=== PATIENT | male | born 1980 | race Two or more races ===

== ENCOUNTER 2020-11-14 14:13 | Emergency (ER) | payer OTHER ==
[~2020-11-14] VITALS: Ht 180.3 cm; Wt 88.0 kg
[2020-11-14 14:30] VITALS: BP 152/89
--- NOTE | 2020-11-14 14:52 | NUR ---
ED Nurse Note: ERPA at bedside.
--- NOTE | 2020-11-14 14:59 | NUR ---
ED Nurse Note: pt was taken to x-ray
--- NOTE | 2020-11-14 15:16 | Emergency Room Report ---
History of Present Illness General Chief Complaint: Puncture Wound Source: Patient Present Illness HPI 40-year-old male with history of hearing impairment here due to a work injury that occurred 2 days ago. Patient asks for communication via writing on paper. Patient reports that 2 days ago he accidentally stepped on a nail at work. Denies any bleeding at this time. Complains of 3 out of 10. Site of puncture with radiation to medial side of leg all the way to the knee. Has full range of motion of knee and chills pain with flexion of the knee. Denies any fall or injury to the knee. Denies any tingling or numbness. Denies fever and chills. Patient is requesting a tetanus shot. Has not taken medication for symptom relief. Patient is able to bear weight on the affected side. Communication with the patient was done via writing, my nurse Selena was present during our conversation. Patient agreed with the assessment and plan. 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 Patient History Past Medical History: see triage record Past Surgical History: none Pertinent Family History: none Immunizations: other - Tdap today Reviewed Nursing Documentation: PMH: Agreed; PSxH: Agreed Nursing Documentation-PMH Past Medical History: No History, Except For Review of Systems All Other Systems: negative except mentioned in HPI Physical Exam Vital Signs Date Time Temp Pulse Resp B/P (MAP) Pulse Ox O2 Delivery O2 Flow Rate FiO2 11/14/20 14:23 98.1 64 18 152/89 (110) 95 Room Air Sp02 EP Interpretation: reviewed, normal General Appearance: no apparent distress, alert, GCS 15, non-toxic Head: normocephalic, atraumatic Eyes: bilateral eye normal inspection, bilateral eye PERRL ENT: hearing grossly normal, no angioedema, normal voice Neck: full range of motion, supple/symm/no masses Respiratory: no retraction, speaking full sentences Cardiovascular #1: normal inspection Cardiovascular #2: 2+ dorsalis pedis (R), 2+ dorsalis pedis (L) Gastrointestinal: soft Rectal: deferred Musculoskeletal: back normal, no calf tenderness, no lower extremity edema, non-tender Neurologic: alert, motor strength/tone normal, oriented x3, sensory intact, responsive, speech normal Psychiatric: judgement/insight normal, memory normal, mood/affect normal, no suicidal/homicidal ideation Skin: other - puncture wound right foot Lymphatic: no adenopathy Medical Decision Making PA Attestation All diagnoses and treatment plans were reviewed and discussed with my supervising physician Dr. Lizama Diagnostic Impression: Primary Impression: Puncture wound ER Course 40-year-old male with history of hearing impairment here due to a work injury that occurred 2 days ago. Patient asks for communication via writing on paper. Patient reports that 2 days ago he accidentally stepped on a nail at work. Denies any bleeding at this time. Complains of 3 out of 10. Site of puncture with radiation to medial side of leg all the way to the knee. Has full range of motion of knee and chills pain with flexion of the knee. Denies any fall or injury to the knee. Denies any tingling or numbness. Denies fever and chills. Patient is requesting a tetanus shot. Has not taken medication for symptom reli ef. Patient is able to bear weight on the affected side. Communication with the patient was done via writing, my nurse Selena was present during our conversation. Patient agreed with the assessment and plan. Ddx considered but are not limited to : Cellulitis, puncture wound, laceration,, superficial infection, abscess Vital signs: are WNL, pt. is afebrile H&PE are most consistent with: Puncture wound ORDERS: X-ray foot, Keflex, ibuprofen ED INTERVENTIONS: Tdap DISCHARGE: At this time pt. is stable for d/c to home. Will provide printed patient care instructions, and any necessary prescriptions. Care plan and follow up instructions have been discussed with the patient prior to discharge. Patient take medication as directed, follow primary care provider resource recovery specialist in case there is a tendon injury or radiation of pain to the medial side of foot. Patient agrees with this assessment and plan. If worsening symptoms return to the emergency room. Other X-Ray Diagnostic Results Other X-Ray Diagnostic Results : X-Ray ordered: Right foot # of Views/Limited Vs Complete: 3 View Indication: Pain EP Interpretation: Yes PA Xray: Interpretation reviewed, by supervising MD, and agrees with findings. Interpretation: no dislocation, no soft tissue swelling, no fractures, other - No foreign body Impression: No acute disease Electronically Signed by: Lisset Carrasco PA-C Last Vital Signs Date Time Temp Pulse Resp B/P (MAP) Pulse Ox O2 Delivery O2 Flow Rate FiO2 11/14/20 14:23 98.1 64 18 152/89 (110) 95 Room Air Disposition: HOME, SELF-CARE Condition: Stable Scripts Ibuprofen (Ibu) 800 Mg Tablet 800 MG PO TID, #30 TAB Prov: Lisset Mckee 11/14/20 Cephalexin* (KEFLEX*) 500 Mg Capsule 500 MG ORAL EVERY 6 HOURS for 7 Days, #28 CAP Prov: Lisset Mckee 11/14/20 Patient Instructions: Puncture Wound Additional Instructions: Take medication as directed, follow primary care provider, if worsening symptoms return to the emergency room Lisset Mckee Nov 14, 2020 15:16
[2020-11-14] MEDS ORDERED: CEPHALEXIN500 MG ORAL (15:20)
[2020-11-14] MEDS ORDERED: IBU800 MG PO (15:20)
[2020-11-14] MEDS ORDERED: Tetanus/Diptheria/Pertussis IM ONE (15:30)
--- NOTE | 2020-11-14 15:37 | Diagnostic Imaging Report ---
Indication: Trauma, pain Technique: 3 views right foot Comparison: none Findings: No acute fracture. No dislocation. Joint spaces are preserved Impression: Negative
--- NOTE | 2020-11-14 15:40 | NUR ---
ED Nurse Note: Pt ambulated to ED from work d/t R toe punctured wound from a nail. Pt is AOx4, calm and coooperative to care, VSS, on RA.
[2020-11-14 15:42] VITALS: BP 148/86
--- NOTE | 2020-11-14 15:42 | NUR ---
ER DISCHARGE NOTE: Patient is cleared to be discharged per ERMD, pt is aox4, on room air, with stable vital signs. pt was given dc and prescription instructions, pt was able to verbalize understanding, pt id band removed. pt is able to ambulate with steady gait. pt took all belongings.
== END 2020-11-14 15:42 | disposition home or self-care (01) ==
LOC: EMR 15:31
DX: S91.331A Puncture wound without foreign body, right foot, initial encounter (principal); W22.8XXA Striking against or struck by other objects, initial encounter; Y92.63 Factory as the place of occurrence of the external cause; Y99.0 Civilian activity done for income or pay; Z23 Encounter for immunization
CPT/HCPCS: 90471; 90715; 99283